=== PATIENT | female | born 1955 ===

== ENCOUNTER 2018-10-08 08:00 | Day surgery (SDC) | payer OTHER ==
[2018-10-05 12:10] LABS: BASOPHILS # (AUTO) 0.05 x10^3/uL (0-0.1); BASOPHILS % (AUTO) 1 % (0-1); EOSINOPHILS # (AUTO) 0.21 x10^3/uL (0-0.4); EOSINOPHILS % (AUTO) 2 % (1-7); LYMPHOCYTES # (AUTO) 1.72 x10^3/uL (1-3.4); LYMPHOCYTES % (AUTO) 18 % (22-44); MD NO; MEAN CORPUSCULAR HEMOGLOBIN 29.1 pg (27.0-34.8); MEAN CORPUSCULAR HGB CONC 33.6 g/dL (32.4-35.8); MEAN CORPUSCULAR VOLUME 86.6 fL (80-100); MEAN PLATELET VOLUME 10.1 fL (7.4-10.4); MONOCYTES # (AUTO) 0.54 x10^3/uL (0.2-0.8); MONOCYTES % (AUTO) 6 % (2-9); NEUTROPHILS # (AUTO) 6.96 x10^3/uL (1.8-6.8); NEUTROPHILS % (AUTO) 73 % (42-75); PLATELET COUNT 342 x10^3/uL (130-400); RED BLOOD COUNT 4.98 x10^6/uL (3.82-5.3); RED CELL DISTRIBUTION WIDTH 12.7 % (9.6-15.2)
[2018-10-05 12:12] LABS: CHLORIDE 105 mmol/L (98-107)
[2018-10-05 12:17] LABS: ALANINE AMINOTRANSFERASE 22 U/L (12-78); ALBUMIN 3.7 g/dL (3.4-5.0); ALKALINE PHOSPHATASE 118 U/L (45-117); ANION GAP 4 mmol/L (5-15); BILIRUBIN,TOTAL 0.9 mg/dL (0.2-1.0); CALCIUM 8.9 mg/dL (8.5-10.1); CREATININE 0.69 mg/dL (0.55-1.02)
[2018-10-05 12:24] LABS: INTERNATIONAL NORMALIZED RATIO 1.01 (0.93-1.1); PROTHROMBIN TIME 10.7 Seconds (9.6-11.5)
[~2018-10-08] VITALS: Ht 157.5 cm; Wt 77.7 kg
[~2018-10-08 08:00] MED LIST: AMLO10TA8 PO; ASPART SC; ASPI81TA45 PO; BUPIVACAINE/PF 0.25% ONE; CHOL200024 PO; EPINEPHRINE 1 MG/ML, 1ML ONE; HEPARIN 5,000 UNITS/ML, 1ML ONE; INDOCYANINE GREEN 25 MG VIAL ONE; INSU100I28 SC; LOSA100T14 PO; METF500T27 PO; METO50TA82 PO; PIOG15TA4 PO; SIMV10TA3 PO
[2018-10-08 08:16] VITALS: BP 152/89
[2018-10-08] MEDS ORDERED: FENTANYL PF 250 MCG/5ML ONE (08:16)
[2018-10-08] MEDS ORDERED: MIDAZOLAM 1 MG/ML, 2ML ONE (08:16)
[2018-10-08] MEDS ORDERED: LACTATED RINGERS 1,000 ML IV SCH (08:19)
[2018-10-08] MEDS ORDERED: GABAPENTIN 300 MG CAPSULE PO ONE (08:20)
[2018-10-08] MEDS ORDERED: ONDANSETRON ODT 8 MG PO ONE (08:20)
[2018-10-08] MEDS ORDERED: ACETAMINOPHEN 500 MG TABLET PO ONE (08:20)
[2018-10-08] MEDS ORDERED: LIDOCAINE-MPF 1%, 2ML INFIL ONE (08:30)
[2018-10-08] MEDS ORDERED: DEXAMETHASONE 4 MG/ML, 1ML ONE (10:40)
[2018-10-08] MEDS ORDERED: GLYCOPYRROLATE 0.2MG/1ML, 5ML ONE (10:40)
[2018-10-08] MEDS ORDERED: NEOSTIGMINE 1 MG/ML, 10ML ONE (10:40)
[2018-10-08] MEDS ORDERED: PROPOFOL 10 MG/ML, 20ML ONE (10:40)
[2018-10-08] MEDS ORDERED: CEFAZOLIN 1,000 MG ONE (10:40)
[2018-10-08] MEDS ORDERED: LORazepam 2 MG/ML, 1ML IVPush PRN (11:00)
[2018-10-08] MEDS ORDERED: ALBUTEROL SULFATE 2.5 MG/3 ML NPPB PRN (11:00)
[2018-10-08] MEDS ORDERED: HYDROmorphone 2 MG/ML, 1ML IVPush PRN (11:00)
[2018-10-08] MEDS ORDERED: hydrALAzine 20 MG/ML, 1ML IV PRN (11:00)
[2018-10-08] MEDS ORDERED: MEPERIDINE/PF 25MG/0.5ML IVPush PRN (11:00)
[2018-10-08] MEDS ORDERED: OXYcodone 5 MG/5 ML ORAL.SOL UDC PO PRN (11:00)
[2018-10-08] MEDS ORDERED: METOCLOPRAMIDE 5 MG/ML, 2ML IV PRN (11:00)
[2018-10-08] MEDS ORDERED: LABETALOL 5MG/ML, 20ML IV PRN (11:00)
[2018-10-08] MEDS ORDERED: FENTANYL PF 100 MCG/2ML ONE (14:16)
[2018-10-08] MEDS ORDERED: OXYcodone 5 MG/5 ML ORAL.SOL UDC ONE (14:16)
[2018-10-08] MEDS: FENTANYL PF 100 MCG/2ML IV PRN ×2 (14:18→14:53)
== END 2018-10-08 17:35 | disposition home or self-care (01) ==
LOC: OUT 08:00
PROVIDERS: ATTEND Specialist
DX: C54.1 Malignant neoplasm of endometrium (principal); R59.1 Generalized enlarged lymph nodes; N88.8 Other specified noninflammatory disorders of cervix uteri; N95.0 Postmenopausal bleeding; N84.1 Polyp of cervix uteri; E11.9 Type 2 diabetes mellitus without complications; I10 Essential (primary) hypertension; E78.5 Hyperlipidemia, unspecified; Z79.82 Long term (current) use of aspirin; Z79.899 Other long term (current) drug therapy; Z88.5 Allergy status to narcotic agent; Z88.0 Allergy status to penicillin; Z79.84 Long term (current) use of oral hypoglycemic drugs
CPT/HCPCS: 36415; 38572; 58552; 71046; 74018; 80053; 82962; 85025; 85610; 85730; 86304; 86850; 86900; 86923; 88112; 88305; 88309; 88329; 88331; 88332; 88333; 93005; J0171; J0690; J1100; J1644; J2250; J2704; J2710; J3010; J3490; J7120; Q0162; S2900

== ENCOUNTER → 2018-12-28 | Outpatient (CLI) | payer OTHER ==
[~2018-12-28] MED LIST changes: -BUPIVACAINE/PF 0.25% ONE; -EPINEPHRINE 1 MG/ML, 1ML ONE; -HEPARIN 5,000 UNITS/ML, 1ML ONE; -INDOCYANINE GREEN 25 MG VIAL ONE
== END | disposition home or self-care (01) ==
LOC: ROC 09:40
PROVIDERS: ATTEND Radiology Radiation Oncology
DX: C54.1 Malignant neoplasm of endometrium (principal); E11.9 Type 2 diabetes mellitus without complications; I10 Essential (primary) hypertension; E78.00 Pure hypercholesterolemia, unspecified; Z88.5 Allergy status to narcotic agent; Z88.0 Allergy status to penicillin; Z79.899 Other long term (current) drug therapy; Z96.651 Presence of right artificial knee joint; Z90.49 Acquired absence of other specified parts of digestive tract; Z90.710 Acquired absence of both cervix and uterus
CPT/HCPCS: 99214; G0463